=== PATIENT | male | born 1990 ===

== ENCOUNTER → 2023-01-04 11:20 | Outpatient (CLI) | payer SELFPAY ==
--- NOTE | ~2023-01-04 | US_ITS ---
Testicular ultrasound with doppler. Indication: Left testicular mass. Technique: Real-time sonography the scrotum was performed. Color flow Doppler and Doppler spectral an alysis were performed. Findings: The testes are homogeneous in echotexture bilaterally. There is no evidence of an intrates ticular mass. The right testis measures 4.3 x 2.2 x 4.2 cm and the left 4.0 x 2.2 x 3.0 cm. There is color-flow seen to both testes. Arterial and venous spectral waveforms are seen in both testes. There is no sonographic evidence of torsion. The head of the epididymis is visualized bilaterally and is within normal limits. Superior to the left testis, there is a 1.8 x 1.2 x 1.5 cm ovoid solid mass, nearly isoechoic to subc utaneous fat. Impression: 1.8 x 1.2 x 1.5 cm mass superior to the left testis, with sonographic appearance suggestive of lipoma . Other mass lesions cannot be excluded. Consider MR to further evaluate, as indicated. No intratesticular mass or testicular torsion. Reviewed, dictated and finalized at location . Impression: 1.8 x 1.2 x 1.5 cm mass superior to the left testis, with sonographic appearanc e suggestive of lipoma. Other mass lesions cannot be excluded. Consider MR to f urther evaluate, as indicated. No intratesticular mass or testicular torsion.
== END ==
PROVIDERS: PCP Nurse Practitioner Family; Visit Provider Nurse Practitioner Family
DX: N50.89 Other specified disorders of the male genital organs (principal); R36.1 Hematospermia
CPT/HCPCS: 76870; 93976